=== PATIENT | female | born 1980 | race Caucasian/White ===

== ENCOUNTER 2017-01-22 00:17 | Emergency (ER) | payer OTHER ==
[2017-01-22 00:26] VITALS: TEMP 97.4
[2017-01-22] MEDS ORDERED: ONDANSETRON 4 MG/2 ML VIAL IVP STA (00:44)
[2017-01-22] MEDS ORDERED: HYDROmorphone 1 MG/ML 1 ML SYRINGE IVP STA (00:44)
[2017-01-22] MEDS ORDERED: PANTOPRAZOLE 40 MG/10 ML VIAL IVP STA (00:44)
[2017-01-22 01:02] LABS: Basophils # (A) 0.1 k/uL (0-0.2); Basophils % (A) 1 %; CHCM 34.4; Eosinophils # (A) 0.6 k/uL (0-0.7); Eosinophils % (A) 4 %; HCT 40.3 % (34.0-46.0); HDW 2.95; HGB 13.6 gm/dL (11.4-16.0); Luc # (Auto) 0.21; Luc % (Auto) 1; Lymphocytes # (A) 1.5 k/uL (1.0-4.8); Lymphocytes % (A) 10 %; MCH 28.6 pg (25.0-35.0); MCHC 33.7 g/dL (31.0-37.0); MCV 84.8 fL (80.0-100.0); Monocytes # (A) 0.9 k/uL (0-1.0); Monocytes % (A) 6 %; Neutrophils # (A) 12.1 k/uL (1.3-7.7); Neutrophils % (A) 79 %; RBC 4.75 m/uL (3.80-5.40); RDW 14.2 % (11.5-15.5); WBC 15.4 k/uL (3.8-10.6); WBC (Perox) 14.38
[2017-01-22 01:12] LABS: ALT 35 U/L (9-52); AST 28 U/L (14-36); Alkaline Phosphatase 53 U/L (38-126); Amylase 51 U/L (30-110); Anion Gap 9 mmol/L; Blood Urea Nitrogen 10 mg/dL (7-17); Calcium 9.4 mg/dL (8.4-10.2); Carbon Dioxide 22 mmol/L (22-30); Chloride 107 mmol/L (98-107); Glucose 93 mg/dL (74-99); Non-African American GFR(MDRD) >60 (>60 ml/min/1.73 sqM); Potassium 3.9 mmol/L (3.5-5.1); Sodium 138 mmol/L (137-145); Total Bilirubin 0.7 mg/dL (0.2-1.3); Total Protein 7.1 g/dL (6.3-8.2)
--- NOTE | 2017-01-22 01:20 | XR ---
EXAM: XR Abdomen, 1 View CLINICAL HISTORY: Reason: abdominal pain TECHNIQUE: Frontal upright views of the abdomen/pelvis. COMPARISON: No relevant prior studies available. FINDINGS: Intraperitoneal space: No evidence of free air. Gastrointestinal tract: Air-filled small bowel loops, several of which are mildly prominent measuring approximately 2.5 cm in the left mid abdomen, beyond which there is air mixed with a mild to moderate amount of colonic stool throughout to the level the rectum. There appear to be a few scattered air-fluid levels on these upright views. Bones/joints: Slight rightward curvature centered at the L4 level with disc space narrowing at L4-5. IMPRESSION: Nonspecific bowel gas pattern that includes several borderline prominent small bowel loops and a few scattered air-fluid levels for which the possibility of ongoing ileus or obstruction is not excluded. The findings could be correlated and followed clinically to guide further imaging follow-up as clinically indicated.
[2017-01-22] MEDS ORDERED: RX INFO: IV CONTRAST WAS GIVEN 1 EACH MISC MISCELLANE PRN (01:51)
[2017-01-22 02:29] LABS: Amorphous Sediment,Urine Rare /hpf; Appearance,Urine Cloudy (Clear); Bacteria,Urine Rare /hpf; Bilirubin,Urine Negative (Negative); Glucose,Urine (UA) Negative (Negative); Ketones,Urine 1+ (Negative); Leukocyte Esterase,Urine Negative (Negative); Mucus,Urine Occasional /hpf; Nitrite,Urine Negative (Negative); Particle Count 5305; Protein,Urine Negative (Negative); RBC,Urine 1 /hpf (0-5); Specific Gravity,Urine 1.009 (1.001-1.035); Squamous Epithelial Cell,Urine 1 /hpf (0-4); UA Billing (MACRO vs. MICRO) MICRO; Urobilinogen,Urine <2.0 mg/dL (<2.0); WBC,Urine 2 /hpf (0-5)
--- NOTE | 2017-01-22 03:19 | ED ---
Abdominal Pain HPI - General Chief Complaint: Abdominal Pain Stated Complaint: Abdominal Pain Time Seen by Provider: 01/22/17 00:33 Source: patient, EMS, RN notes reviewed, old records reviewed Mode of arrival: EMS Limitations: no limitations - History of Present Illness Initial Comments: This is a 36-year-old female presenting to the emergency Department chief complaint of right upper quadrant pain radiating towards her back and shooting down towards her rectum for the past day. Patient reports that she's had problems with bowel movements for the past month. Patient reports it's extremely painful. She reports that she has had a colonoscopy scheduled on . Patient reports that she has tried a suppositories to help with having a bowel movement whenever she answers some they're extremely painful. She reports that she's had a few episodes of vomiting tonight. Patient reports that she would not hold anything down including Pepcid. Patient reports she's had no recent fever or chills. - Related Data Home Medications Medication Instructions Recorded Confirmed Ibuprofen 400 mg PO DAILY PRN 01/20/17 01/20/17 Previous Rx's Medication Instructions Recorded Bisacodyl [Dulcolax] 5 mg PO DAILY #20 tablet. 01/22/17 Dibucaine [Nupercainal] 1 gm RC TID #56.7 oint...g. 01/22/17 Ondansetron Odt [Zofran Odt] 4 mg PO Q8HR PRN #12 tab 01/22/17 Allergies Allergy/AdvReac Type Severity Reaction Status Date / Time No Known Allergies Allergy Verified 01/23/17 11:18 Review of Systems ROS Statement: Those systems with pertinent positive or pertinent negative responses have been documented in the HPI. ROS Other: All systems not noted in ROS Statement are negative. Past Medical History Additional Past Medical History / Comment(s): HEMORRHOIDS. BLOATING AND ABD PAIN History of Any Multi-Drug Resistant Organisms: None Reported Past Surgical History: Cholecystectomy Additional Past Surgical History / Comment(s): COLONOSCOPY AND EGD Past Anesthesia/Blood Transfusion Reactions: Previous Problems w/ Anesthesia Additional Past Anesthesia/Blood Transfusion Reaction / Comment(s): WAKES IN HYSTERICS AFTER ANESTHESIA Past Psychological History: No Psychological Hx Reported Smoking Status: Current every day smoker Past Alcohol Use History: None Reported Additional Past Alcohol Use History / Comment(s): HAS BEEN SMOKING SINCE AGE 12. DOWN TO 2 CIGARETTES DAILY Past Drug Use History: None Reported - Past Family History Mother Family Medical History: No Reported History General Exam - General Exam Comments Initial Comments: This is a 36-year-old female. No acute distress. Limitations: no limitations General appearance: alert, in no apparent distress Head exam: Present: atraumatic, normocephalic, normal inspection Eye exam: Present: normal appearance, PERRL, EOMI. Absent: scleral icterus, conjunctival injection, periorbital swelling ENT exam: Present: normal exam, mucous membranes moist Neck exam: Present: normal inspection. Absent: tenderness, meningismus, lymphadenopathy Respiratory exam: Present: normal lung sounds bilaterally. Absent: respiratory distress, wheezes, rales, rhonchi, stridor Cardiovascular Exam: Present: regular rate, normal rhythm, normal heart sounds. Absent: systolic murmur, diastolic murmur, rubs, gallop, clicks GI/Abdominal exam: Present: soft, tenderness (Epigastric right upper quadrant tenderness.), normal bowel sounds. Absent: distended, guarding, rebound, rigid Rectal exam: Present: normal rectal tone, hemorrhoids, tenderness (Patient had severe pain with digital rectal exam.) Extremities exam: Present: normal inspection, full ROM, normal capillary refill. Absent: tenderness, pedal edema, joint swelling, calf tenderness Back exam: Present: normal inspection Neurological exam: Present: alert, oriented X3, CN II-XII intact Psychiatric exam: Present: normal affect, normal mood Skin exam: Present: warm, dry, intact, normal color. Absent: rash Course Vital Signs 01/22/17 01/22/17 00:21 04:02 Temperature 97.4 F L Pulse Rate 55 L 86 Respiratory 18 16 Rate Blood Pressure 123/61 115/67 O2 Sat by Pulse 99 Oximetry Medical Decision Making - Medical Decision Making his is a 36-year-old female presenting to the emergency Department chief complaint of right upper quadrant pain radiating towards her back and shooting down towards her rectum for the past day. Patient reports that she's had problems with bowel movements for the past month. Patient reports it's extremely painful. She reports that she has had a colonoscopy scheduled on . Patient reports that she has tried a suppositories to help with having a bowel movement whenever she answers some they're extremely painful. She reports that she's had a few episodes of vomiting tonight. Patient reports that she would not hold anything down including Pepcid. Patient reports she's had no recent fever or chills. She did have significant pain with rectal exam. Patient was informed of her results, she did have a mildly elevated white blood cell count could be secondary to vomiting. Patient was resting comfortably after pain medication. Discussed that she likely has an anal fissure causing the pain with bowel movements which then causes her to be constipated. CT abdomen and pelvis was ordered and was negative for any significant process. Patient will be discharged home with Anusol topical cream as well as stool softeners. She does report she has a colonoscopy scheduled on . Patient does have tap the prep tomorrow. Patient agrees to treatment plan and will comply. Return parameters were discussed. - Lab Data Result diagrams: 01/22/17 00:30 01/22/17 00:30 Lab Results 01/22/17 01/22/17 01/22/17 Range/Units 00:30 00:30 01:40 WBC 15.4 H (3.8-10.6) k/uL RBC 4.75 (3.80-5.40) m/uL Hgb 13.6 (11.4-16.0) gm/dL Hct 40.3 (34.0-46.0) % MCV 84.8 (80.0-100.0) fL MCH 28.6 (25.0-35.0) pg MCHC 33.7 (31.0-37.0) g/dL RDW 14.2 (11.5-15.5) % Plt Count 254 (150-450) k/uL Neutrophils % 79 % Lymphocytes % 10 % Monocytes % 6 % Eosinophils % 4 % Basophils % 1 % Neutrophils # 12.1 H (1.3-7.7) k/uL Lymphocytes # 1.5 (1.0-4.8) k/uL Monocytes # 0.9 (0-1.0) k/uL Eosinophils # 0.6 (0-0.7) k/uL Basophils # 0.1 (0-0.2) k/uL Sodium 138 (137-145) mmol/L Potassium 3.9 (3.5-5.1) mmol/L Chloride 107 (98-107) mmol/L Carbon Dioxide 22 (22-30) mmol/L Anion Gap 9 mmol/L BUN 10 (7-17) mg/dL Creatinine 0.60 (0.52-1.04) mg/dL Est GFR (MDRD) Af Amer >60 (>60 ml/min/1.73 sqM) Est GFR (MDRD) Non-Af >60 (>60 ml/min/1.73 sqM) Glucose 93 (74-99) mg/dL Calcium 9.4 (8.4-10.2) mg/dL Total Bilirubin 0.7 (0.2-1.3) mg/dL AST 28 (14-36) U/L ALT 35 (9-52) U/L Alkaline Phosphatase 53 (38-126) U/L Total Protein 7.1 (6.3-8.2) g/dL Albumin 4.2 (3.5-5.0) g/dL Amylase 51 (30-110) U/L Lipase 54 (23-300) U/L Urine Color Yellow Urine Appearance Cloudy H (Clear) Urine pH 8.0 (5.0-8.0) Ur Specific [place] 1.009 (1.001-1.035) Urine Protein Negative (Negative) Urine Glucose (UA) Negative (Negative) Urine Ketones 1+ H (Negative) Urine Blood Negative (Negative) Urine Nitrite Negative (Negative) Urine Bilirubin Negative (Negative) Urine Urobilinogen <2.0 (<2.0) mg/dL Ur Leukocyte Esterase Negative (Negative) Urine RBC 1 (0-5) /hpf Urine WBC 2 (0-5) /hpf Ur Squamous Epith Cells 1 (0-4) /hpf Amorphous Sediment Rare H (None) /hpf Urine Bacteria Rare H (None) /hpf Urine Mucus Occasional H (None) /hpf Urine HCG, Qual (Not Detectd) Stool Occult Blood (Negative) 01/22/17 01/22/17 Range/Units 01:40 03:10 WBC (3.8-10.6) k/uL RBC (3.80-5.40) m/uL Hgb (11.4-16.0) gm/dL Hct (34.0-46.0) % MCV (80.0-100.0) fL MCH (25.0-35.0) pg MCHC (31.0-37.0) g/dL RDW (11.5-15.5) % Plt Count (150-450) k/uL Neutrophils % % Lymphocytes % % Monocytes % % Eosinophils % % Basophils % % Neutrophils # (1.3-7.7) k/uL Lymphocytes # (1.0-4.8) k/uL Monocytes # (0-1.0) k/uL Eosinophils # (0-0.7) k/uL Basophils # (0-0.2) k/uL Sodium (137-145) mmol/L Potassium (3.5-5.1) mmol/L Chloride (98-107) mmol/L Carbon Dioxide (22-30) mmol/L Anion Gap mmol/L BUN (7-17) mg/dL Creatinine (0.52-1.04) mg/dL Est GFR (MDRD) Af Amer (>60 ml/min/1.73 sqM) Est GFR (MDRD) Non-Af (>60 ml/min/1.73 sqM) Glucose (74-99) mg/dL Calcium (8.4-10.2) mg/dL Total Bilirubin (0.2-1.3) mg/dL AST (14-36) U/L ALT (9-52) U/L Alkaline Phosphatase (38-126) U/L Total Protein (6.3-8.2) g/dL Albumin (3.5-5.0) g/dL Amylase (30-110) U/L Lipase (23-300) U/L Urine Color Urine Appearance (Clear) Urine pH (5.0-8.0) Ur Specific [place] (1.001-1.035) Urine Protein (Negative) Urine Glucose (UA) (Negative) Urine Ketones (Negative) Urine Blood (Negative) Urine Nitrite (Negative) Urine Bilirubin (Negative) Urine Urobilinogen (<2.0) mg/dL Ur Leukocyte Esterase (Negative) Urine RBC (0-5) /hpf Urine WBC (0-5) /hpf Ur Squamous Epith Cells (0-4) /hpf Amorphous Sediment (None) /hpf Urine Bacteria (None) /hpf Urine Mucus (None) /hpf Urine HCG, Qual Not Detected (Not Detectd) Stool Occult Blood Positive H (Negative) - Radiology Data Radiology results: report reviewed There are a few mildly labored, and jejunal loops were his other may be in wall perhaps the bases and nonspecific enteritis which may be infectious or inflammatory basis. Mild to moderate colonic stool without evidence of obstruction. Disposition Clinical Impression: Pain, rectal, Abdominal pain Disposition: HOME SELF-CARE Condition: Good Instructions: Abdominal Pain (ED), Rectal Pain (ED) Additional Instructions: Is advised to rest, take the stool softeners, and using the cream. Patient advised to take nausea medication. Follow-up with your colonoscopy appointment on . Patient advised a clear liquid diet for the 24-48 hours. Return to the emergency department if any alarming signs or symptoms occur. Prescriptions: Bisacodyl [Dulcolax] 5 mg PO DAILY #20 tablet. Dibucaine [Nupercainal] 1 gm RC TID #56.7 oint...g. Ondansetron Odt [Zofran Odt] 4 mg PO Q8HR PRN #12 tab PRN Reason: Nausea Referrals: Josse Hair DO [Primary Care Provider] - 1-2 days Time of Disposition: 03:46
--- NOTE | 2017-01-22 03:35 | CT ---
EXAM: CT Abdomen and Pelvis With Intravenous Contrast CLINICAL HISTORY: Reason: Pain TECHNIQUE: Axial computed tomography images of the abdomen and pelvis with intravenous contrast. CTDI is 10.40 mGy and DLP is 358.90 mGy-cm. This CT exam was performed using one or more of the following dose reduction techniques: automated exposure control, adjustment of the mA and/or kV according to patient size, and/or use of iterative reconstruction technique. COMPARISON: Earlier KUB of the same day. FINDINGS: Lower thorax: Minimal dependent changes at the lung bases. ABDOMEN: Liver: Mildly enlarged with hepatic span of 17.8 cm. Gallbladder and bile ducts: The gallbladder is not seen, presumably absent rather than contracted. No ductal dilation. Pancreas: Unremarkable. No mass. No ductal dilation. Spleen: Unremarkable. No splenomegaly. Adrenals: Unremarkable. No mass. Kidneys and ureters: Unremarkable. No solid mass. No hydronephrosis. Stomach and bowel: There are few mildly prominent air and fluid-filled jejunal loops measuring over 3 cm in the left upper quadrant. Elsewhere, other jejunal loops may be mildly thick-walled although are decompressed. There is no focal transition to suggest obstruction. Mild to moderate amount of colonic stool throughout, including within a redundant sigmoid colon. Appendix: Small amount of radiodense debris or appendicoliths within normal appendix. PELVIS: Bladder: Within normal limits for degree of distention. Reproductive: Within physiologic normal limits. ABDOMEN and PELVIS: Intraperitoneal space: No free air. No significant fluid collection. Bones/joints: Degenerative changes, most notably with disc space narrowing and vacuum disc at L4-5 and L5-S1. Soft tissues: Unremarkable. Vasculature: No abdominal aortic aneurysm. Lymph nodes: No enlarged lymph nodes. IMPRESSION: 1. There are a few mildly prominent jejunal loops whereas others may be mildly thick-walled, perhaps on the basis of a nonspecific enteritis, and that may be on an infectious or inflammatory basis. 2. Mild to moderate amount of colonic stool without evidence of intestinal obstruction. 3. Additional findings as above.
[2017-01-22 04:04] VITALS: BP 115/67; PULSE 86; RESP 16
== END 2017-01-22 04:04 | disposition home or self-care (01) ==
LOC: EC 00:17
DX: R10.13 Epigastric pain (principal); R10.11 Right upper quadrant pain; K62.89 Other specified diseases of anus and rectum; R11.10 Vomiting, unspecified; F17.210 Nicotine dependence, cigarettes, uncomplicated; Z87.19 Personal history of other diseases of the digestive system; Z90.49 Acquired absence of other specified parts of digestive tract
CPT/HCPCS: 36415; 80053; 82150; 83690; 85025; 82272; 81001; 81025; 74000; 74177; 99285; 96374; 96375 ×2; J2405; J1170; Q9967; C9113

== ENCOUNTER 2017-01-23 09:27 | Day surgery (SDC) | payer OTHER ==
[2017-01-20 15:20] VITALS: BMI 22.7
[~2017-01-23 09:27] MED LIST: LACTATED RINGERS 1,000 ML IV SCH; LIDOCAINE 1% 20 ML VIAL (10MG/ML) FOR IV START INTRADERMA PRN
[2017-01-23 09:57] VITALS: TEMP 97.7
[2017-01-23] MEDS ORDERED: MIDAZOLAM 2 MG/2 ML VIAL IV ONE (10:20)
--- NOTE | 2017-01-23 11:02 | P.GSHP ---
History of Present Illness H&P Date: 01/23/17 Chief Complaint: GERD, ANAL PAIN, HEMORRHOIDS This is a 36-year-old female who's had complaints of anal pain and GERD. She presents today for EGD and colonoscopy. She denies any rectal bleeding. - Constitutional Constitutional: Reports as per HPI Past Medical History Additional Past Medical History / Comment(s): HEMORRHOIDS. BLOATING AND ABD PAIN History of Any Multi-Drug Resistant Organisms: None Reported Past Surgical History: Cholecystectomy Additional Past Surgical History / Comment(s): COLONOSCOPY AND EGD Past Anesthesia/Blood Transfusion Reactions: Previous Problems w/ Anesthesia Additional Past Anesthesia/Blood Transfusion Reaction / Comment(s): WAKES IN HYSTERICS AFTER ANESTHESIA Past Psychological History: No Psychological Hx Reported Smoking Status: Current every day smoker Past Alcohol Use History: None Reported Additional Past Alcohol Use History / Comment(s): HAS BEEN SMOKING SINCE AGE 12. DOWN TO 2 CIGARETTES DAILY Past Drug Use History: None Reported - Past Family History Mother Family Medical History: No Reported History Medications and Allergies Home Medications Medication Instructions Recorded Confirmed Type Ibuprofen 400 mg PO DAILY PRN 01/20/17 01/20/17 History Allergies Allergy/AdvReac Type Severity Reaction Status Date / Time No Known Allergies Allergy Verified 01/22/17 00:21 Surgical - Exam Vital Signs Temp Pulse Resp BP Pulse Ox 97.7 F 75 16 111/78 99 01/23/17 09:56 01/23/17 09:56 01/23/17 09:56 01/23/17 09:56 01/23/17 09:56 - General well developed, no distress - Eyes PERRL - ENT normal pinna - Neck no masses - Respiratory normal expansion - Cardiovascular Rhythm: regular - Abdomen Abdomen: soft, non tender Assessment and Plan Plan: GERD, anal pain. We'll perform EGD and colonoscopy.
[2017-01-23] MEDS ORDERED: LIDOCAINE 1% INJ 10MG/ML (20 ML MDV) ONE (11:03)
[2017-01-23] MEDS ORDERED: PROPOFOL 10 MG/ML 20 ML VIAL IV ONE (11:03)
--- NOTE | 2017-01-23 11:32 | P.OP ---
Date of Procedure: 01/23/17 Preoperative Diagnosis: GERD Anal pain Postoperative Diagnosis: Mild external hemorrhoids. Mild antral gastritis Procedure(s) Performed: EGD Colonoscopy Implants: Anesthesia: MAC Surgeon: Bradley Ryder Pathology: other (Antrum) Condition: stable Disposition: PACU Indications for Procedure: Operative Findings: Description of Procedure: The patient's placed on the endoscopy table in the lateral position. She received IV sedation. The gastroscope placed oropharynx passed in the esophagus and stomach. Scope then placed through the pylorus. The first and second portion of the duodenum appeared normal. The scope was then brought back and the antrum this. Mildly inflamed. A biopsies was performed. Scope was then retroflexed and the remainder some appeared normal. There is no evidence of a hiatal hernia. The GE junction was at 47 is. The distal esophagus appeared normal. The proximal esophagus appeared normal. Scope was withdrawn for patient. Next digital rectal exam was performed which revealed some prominent mild external hemorrhoids. Flexible colonoscope was then placed patient anus passed throughout the entire colon. The ileocecal valve was visualized. Cecum, ascending, transverse and descending colon appeared normal. Scope was then brought back the sigmoid colon this appeared normal. Scope was withdrawn and the rectum appeared normal. Scope was withdrawn for patient.
[2017-01-23 12:03] VITALS: BP 122/58; PULSE 61; RESP 16
== END 2017-01-23 12:28 | disposition home or self-care (01) ==
LOC: ORWHC2ENDO 09:27
PROVIDERS: ATTEND Surgery
DX: K21.9 Gastro-esophageal reflux disease without esophagitis (principal); K29.50 Unspecified chronic gastritis without bleeding; K64.4 Residual hemorrhoidal skin tags; F17.210 Nicotine dependence, cigarettes, uncomplicated; Z79.899 Other long term (current) drug therapy; Z90.49 Acquired absence of other specified parts of digestive tract
CPT/HCPCS: 43239; 45378; 81025; 88305; 88342; J2250; J2001; J2704

== ENCOUNTER 2022-03-06 18:26 | Emergency (ER) | payer OTHER ==
[2022-03-06] MEDS ORDERED: ONDANSETRON 4 MG/2 ML VIAL IVP STA (19:32)
[2022-03-06] MEDS ORDERED: KETOROLAC 15 MG/ML 1 ML VIAL IVP STA (19:32)
[2022-03-06] MEDS ORDERED: SODIUM CHLORIDE 0.9% 1,000 ML IV STA (19:32)
[2022-03-06 19:51] LABS: Basophils % (A) 1 %; Eosinophils # (A) 0.1 k/uL (0-0.7); Eosinophils % (A) 2 %; HCT 37.3 % (34.0-46.0); HGB 12.5 gm/dL (11.4-16.0); Lymphocytes # (A) 0.3 k/uL (1.0-4.8); Lymphocytes % (A) 8 %; MCH 28.1 pg (25.0-35.0); MCHC 33.4 g/dL (31.0-37.0); MCV 83.9 fL (80.0-100.0); Mean Platelet Volume 7.1; Monocytes # (A) 0.7 k/uL (0-1.0); Monocytes % (A) 19 %; Neutrophils # (A) 2.7 k/uL (1.3-7.7); Neutrophils % (A) 68 %; Platelet Count 221 k/uL (150-450); RBC 4.45 m/uL (3.80-5.40); RDW 15.3 % (11.5-15.5)
[2022-03-06 20:05] LABS: African American GFR (CKD) >90 (>60 ml/min/1.73 sqM); Anion Gap 8 mmol/L; Blood Urea Nitrogen 7 mg/dL (7-17); Calcium 8.6 mg/dL (8.4-10.2); Carbon Dioxide 22 mmol/L (22-30); Chloride 103 mmol/L (98-107); Glucose 104 mg/dL (74-99); Magnesium 1.7 mg/dL (1.6-2.3); Non-African American GFR(CKD) >90 (>60 ml/min/1.73 sqM); Potassium 3.4 mmol/L (3.5-5.1); Sodium 133 mmol/L (137-145)
[2022-03-06] MEDS ORDERED: POTASSIUM CHLORIDE ER 20 MEQ TAB.ER PO STA (20:36)
--- NOTE | 2022-03-06 21:04 | ED ---
General Adult HPI - General Chief complaint: Upper Respiratory Infection Stated complaint: Vomiting/headache/Fever Time Seen by Provider: 03/06/22 19:10 Source: patient, RN notes reviewed, old records reviewed Mode of arrival: ambulatory Limitations: no limitations - History of Present Illness Initial comments: Patient is a 41-year-old female with no significant past medical history who presents emergency Department with concern for Covid infection. Has sick contact. Has been having multiple episodes of nausea and vomiting that is nonbilious nonbloody over the last day. No diarrhea. Rhinorrhea. Headache. Endorses joint pain and fatigue. Was not vaccinated. Covid testing was obtained triage and is positive. Seeking therapy. - Related Data Home Medications Medication Instructions Recorded Confirmed Ibuprofen 400 mg PO DAILY PRN 01/20/17 01/20/17 Previous Rx's Medication Instructions Recorded Dibucaine [Nupercainal] 1 gm RC TID #56.7 oint...g. 01/22/17 Ondansetron Odt [Zofran Odt] 4 mg PO Q8HR PRN #12 tab 01/22/17 bisacodyL [Dulcolax] 5 mg PO DAILY #20 tablet. 01/22/17 Ondansetron Odt [Zofran Odt] 4 mg PO Q8HR PRN 3 Days #9 tab 03/06/22 Allergies Allergy/AdvReac Type Severity Reaction Status Date / Time No Known Allergies Allergy Verified 03/06/22 18:46 Review of Systems ROS Statement: Those systems with pertinent positive or pertinent negative responses have been documented in the HPI. Review of Systems: CONST: Denies fever EYES: Denies blurry vision ENT: Endorses nasal congestion C/V: Denies Chest pain RESP: Denies shortness of breath GI: Endorses nausea and vomiting : Denies dysuria SKIN: Denies rash. MSK: Denies joint pain. NEURO: Denies headache ROS Other: All systems not noted in ROS Statement are negative. Past Medical History Additional Past Medical History / Comment(s): HEMORRHOIDS. BLOATING AND ABD PAIN History of Any Multi-Drug Resistant Organisms: None Reported Past Surgical History: Cholecystectomy Additional Past Surgical History / Comment(s): COLONOSCOPY AND EGD Past Anesthesia/Blood Transfusion Reactions: Previous Problems w/ Anesthesia Additional Past Anesthesia/Blood Transfusion Reaction / Comment(s): WAKES IN HYSTERICS AFTER ANESTHESIA Past Psychological History: No Psychological Hx Reported Smoking Status: Never smoker Past Alcohol Use History: None Reported Past Drug Use History: None Reported - Past Family History Mother Family Medical History: No Reported History General Exam - General Exam Comments Initial Comments: General: Appears in no acute distress. HEAD: Normal with no signs of head trauma. EYES: PERRLA, EOMI, conjunctiva normal, no discharge. ENT: Hearing grossly intact, normal oropharynx. RESPIRATORY: Clear breath sounds bilaterally. No wheezes, rales, or rhonchi. No hypoxia. No increased work of breathing. C/V: Regular rate and rhythm. S1 and S2 auscultated, no edema, peripheral pulses 2+ and intact throughout ABD: Abd is soft, nontender, nondistended EXT: Normal range of motion, no obvious deformity SKIN: No rashes or lesions observed on exposed skin. NEURO: Alert and oriented 4. Limitations: no limitations Course Vital Signs 03/06/22 03/06/22 03/06/22 18:44 20:00 21:24 Temperature 98.2 F 97.6 F 98 F Pulse Rate 67 64 Respiratory 16 18 Rate Blood Pressure 118/80 123/71 O2 Sat by Pulse 99 98 Oximetry Medical Decision Making - Medical Decision Making Based on the patient's presentation and physical exam, I'm concerned for COVID- 19 infection the patient. Covid testing is positive. Vital signs within normal limits. No hypoxia or respiratory distress. She is having nausea and vomiting. She is concerned she is dehydrated. I did offer IV fluids as well as Zofran and Toradol. We'll obtain basic laboratory studies. She was in agreement this plan. Patient does not meet criteria for medical antibiotics therapy, but did accept a prescription for Paxlovid. She was not vaccinated. Laboratory studies are remarkable for a mild hypokalemia at 3.4. Otherwise there were unremarkable. On reevaluation, patient is feeling improved. Vital signs within normal limits still. I discussed results with her. She was given potassium supplementation. I believe it is safer to be discharged home at this time. She was in agreement this plan. We discussed quarantine. We discussed obtaining a pulse oximeter. I will provide the patient with a prescription for Paxlovid, ODT Zofran. I instructed the patient to follow up with their PCP in the next 1-3 days. I explained that the patient should return to the emergency department if they experience any worsening symptoms. Strict return precautions were discussed with the patient. The patient expressed understanding of these instructions. I answered all questions that the patient had. The patient was discharged home in good condition with their prescriptions and follow up information. - Lab Data Result diagrams: 03/06/22 19:42 03/06/22 19:42 Lab Results 03/06/22 03/06/22 03/06/22 Range/Units 18:48 19:42 19:42 WBC 4.0 (3.8-10.6) k/uL RBC 4.45 (3.80-5.40) m/uL Hgb 12.5 (11.4-16.0) gm/dL Hct 37.3 (34.0-46.0) % MCV 83.9 (80.0-100.0) fL MCH 28.1 (25.0-35.0) pg MCHC 33.4 (31.0-37.0) g/dL RDW 15.3 (11.5-15.5) % Plt Count 221 (150-450) k/uL MPV 7.1 Neutrophils % 68 % Lymphocytes % 8 % Monocytes % 19 % Eosinophils % 2 % Basophils % 1 % Neutrophils # 2.7 (1.3-7.7) k/uL Lymphocytes # 0.3 L (1.0-4.8) k/uL Monocytes # 0.7 (0-1.0) k/uL Eosinophils # 0.1 (0-0.7) k/uL Basophils # 0.0 (0-0.2) k/uL Sodium 133 L (137-145) mmol/L Potassium 3.4 L (3.5-5.1) mmol/L Chloride 103 (98-107) mmol/L Carbon Dioxide 22 (22-30) mmol/L Anion Gap 8 mmol/L BUN 7 (7-17) mg/dL Creatinine 0.57 (0.52-1.04) mg/dL Est GFR (CKD-EPI)AfAm >90 (>60 ml/min/1.73 sqM) Est GFR (CKD-EPI)NonAf >90 (>60 ml/min/1.73 sqM) Glucose 104 H (74-99) mg/dL Calcium 8.6 (8.4-10.2) mg/dL Magnesium 1.7 (1.6-2.3) mg/dL Coronavirus (PCR) Detected A (Not Detectd) Disposition Clinical Impression: COVID-19 virus infection, Nausea and vomiting Disposition: HOME SELF-CARE Condition: Good Instructions (If sedation given, give patient instructions): Coronavirus Disease 2019 (COVID-19) Prescriptions: Ondansetron Odt [Zofran Odt] 4 mg PO Q8HR PRN 3 Days #9 tab PRN Reason: Nausea Is patient prescribed a controlled substance at d/c from ED?: No Referrals: Josse Hair DO [Primary Care Provider] - 1-2 days Time of Disposition: 21:00
[2022-03-06 21:25] VITALS: BP 123/71; PULSE 64; RESP 18; TEMP 98
== END 2022-03-06 21:24 | disposition home or self-care (01) ==
LOC: EC 18:26
DX: U07.1 COVID-19 (principal)
CPT/HCPCS: 36415; 80048; 83735; 85025; 87635; 99284; 96374; 96375; 96361; J2405; J1885